=== PATIENT | male | born 1960 | race Two or more races ===

== ENCOUNTER 2022-08-22 17:37 | Emergency (ER) | payer OTHER ==
[~2022-08-22] VITALS: Ht 175.3 cm; Wt 61.2 kg
[2022-08-22] MEDS ORDERED: CLONAZEPAM1 MG PO (18:54)
[2022-08-22] MEDS ORDERED: LOSARTAN POTASS25 MG PO (18:54)
[2022-08-22] MEDS ORDERED: SYNTHROID50 MCG PO (18:55)
[2022-08-22] MEDS ORDERED: ROPINIROLE HCL2 MG PO (18:55)
== END 2022-08-22 21:23 | disposition home or self-care (01) ==
LOC: ER 17:37
DX: K03.81 Cracked tooth (principal)